=== PATIENT | male | born 1965 | race Caucasian/White ===

== ENCOUNTER → 2020-12-31 13:03 | Outpatient (BNVA) | payer OTHER, SELFPAY | PROVIDERS: PCP Internal Medicine; Visit Provider Urology ==

== ENCOUNTER → 2021-07-01 13:19 | Outpatient (BNVA) | payer OTHER, SELFPAY | PROVIDERS: PCP Internal Medicine; Visit Provider Urology ==

== ENCOUNTER → 2022-01-05 14:18 | Outpatient (BNVA) | payer OTHER, SELFPAY | PROVIDERS: PCP Internal Medicine; Visit Provider Urology ==

== ENCOUNTER → 2022-04-06 08:46 | Outpatient (BNVA) | payer OTHER, SELFPAY | PROVIDERS: PCP Internal Medicine; Visit Provider Urology | DX: Z13.89 Encounter for screening for other disorder (principal) ==

== ENCOUNTER 2022-04-18 07:07 | Day surgery (SDC) | payer OTHER, SELFPAY ==
--- NOTE | 2022-04-15 10:41 | HO.ANESPROP2 ---
Documented by User: Shania Lewis NP 04/15/22 10:50 HPI - Anesthesia Eval Consult details Narrative: 57yo M for Laser Ablation Prostate w/Green Light PMFSH Active Problems Active Problems: All Active Problems (Updated 02/04/22 @ 14:24 by Sandro Callahan MD) Nocturia more than twice per night (Acute) Weak urinary stream (Acute) Bladder outlet obstruction (Acute) Chronic prostatitis (Acute) BPH (benign prostatic hyperplasia) (Acute) Elevated PSA (Acute) Past Medical History Medical History (Updated 04/15/22 @ 10:41 by Shania Lewis NP) Bladder outlet obstruction BPH (benign prostatic hyperplasia) Social History Social History Patient Tobacco Use Status: Never used Tobacco Meds Allergies Allergy/AdvReac Type Severity Reaction Status Date / Time amoxicillin [Augmentin] Allergy Unknown Unknown Verified 01/05/22 14:21 clavulanic acid [Augmentin] Allergy Unknown Unknown Verified 01/05/22 14:21 iodine Allergy Unknown during Verified 01/05/22 14:21 surgery the site diddnt heal properly Sulfa (Sulfonamide Allergy Unknown Unknown Verified 01/05/22 14:21 Antibiotics) Home Medications Medication Instructions Recorded Confirmed Last Taken Type atorvastatin 40 mg tablet 40 mg PO BEDTIME 07/01/21 04/18/22 04/17/22 History Exam Exam Date and Time: April 15, 2022 1041 Assessment and Plan Assessment Anesthesia Assessment: Chart Reviewed Documented by User: Jagdeep Abbott MD 04/18/22 16:01 HPI - Anesthesia Eval Consult details Narrative: 57yo M for Laser Ablation Prostate w/Green Light LENIN , CPAP PMFSH Past Medical History Medical History (Updated 04/15/22 @ 10:41 by Shania Lewis NP) Bladder outlet obstruction BPH (benign prostatic hyperplasia) Family History Family history of problems with anesthesia: No Surgical History History of Problems with Anesthesia: No Social History Social History Patient Tobacco Use Status: Never used Tobacco Meds Allergies Allergy/AdvReac Type Severity Reaction Status Date / Time amoxicillin [Augmentin] Allergy Unknown Unknown Verified 01/05/22 14:21 clavulanic acid [Augmentin] Allergy Unknown Unknown Verified 01/05/22 14:21 iodine Allergy Unknown during Verified 01/05/22 14:21 surgery the site diddnt heal properly Sulfa (Sulfonamide Allergy Unknown Unknown Verified 01/05/22 14:21 Antibiotics) Home Medications Medication Instructions Recorded Confirmed Last Taken Type atorvastatin 40 mg tablet 40 mg PO BEDTIME 07/01/21 04/18/22 04/17/22 History Exam Airway Mallampati Class: III TM Dist: >3cm Neck ROM: Limited Loose/Missing/Broken Teeth: Yes Heart: S1,S2 Lungs: b/l breath sounds Assessment and Plan Assessment Anesthesia Assessment: Anesthesia Plan Discussed Final Anesthetic Review Family History of Problems with Anesthesia: No History of Problems with Anesthesia: No NPO: Yes ASA Class: II Final Preanesthetic Review: Meds/Allgs Chart Reviewed, Consent Obtained/Reviewed and Anes Risks/Benef Reviewed Patient Risk: Intermediate Procedure Risk: Intermediate Anesthetic Plan Anesthetic Plan: GA Disposition: Standard PACU
[2022-04-18 07:43] VITALS: BP 132/81; PULSE 79; RESP 17; TEMP 36.8; O2SAT 98; BMI 27.2
[2022-04-18] MEDS: Lactated Ringers 1,000 ML 100 ML IVCONT (08:02)
--- NOTE | 2022-04-18 08:54 | P.HPSUR_ITS ---
Pre-Procedural Eval Section A Date of Service: 04/18/22 The patient is an INPATIENT: No Changes since office visit: No Cold of Flu in the past 2 weeks, No New Medical Problems, No Changes in Medication and No Patient answered all questions The History & Physical has been completed within 30 days and I have reviewed it.: Yes Section B Chief Complaint: Benign prostatic hyperplasia without lower urinary Details of Present Illness: Greenlight laser prostatectomy Relevant Family History (Specify if Yes): No Relevant Social History: None Present Medications: see Short Stay Collaborative assessment Medical History: No relevant PMH History of Previous Operations: No relevant previous surgery Allergies: Allergies Allergy/AdvReac Type Severity Reaction Status Date / Time amoxicillin [Augmentin] Allergy Unknown Unknown Verified 01/05/22 14:21 clavulanic acid [Augmentin] Allergy Unknown Unknown Verified 01/05/22 14:21 iodine Allergy Unknown during Verified 01/05/22 14:21 surgery the site diddnt heal properly Sulfa (Sulfonamide Allergy Unknown Unknown Verified 01/05/22 14:21 Antibiotics) Review of Systems Sugical H&P ROS: Negative: Constitution, Cardiovascular, Respiratory, Neurological, Psychiatric, Hem-Onc, Allergic/Immunologic, Gastrointestinal, Genitourinary, Musculoskeletal, Integumentary, Endocrine and Eyes/E ars/Nose/Throat Exam Surgical H&P Exam: Normal: HEENT, Normal: Heart, Normal: Lungs, Normal: Extremities, Normal: Abdomen, Normal: Skin and Normal: Neurological Plan Diagnosis/Plan: Unchanged (laser prostate) I have reviewed the history and physical and performed a pertinent physical examination on my patient. No changes have occurred unless specified.
--- NOTE | 2022-04-18 10:22 | W.PM.OPN ---
Operative Note Operative Note Date of Service: 04/18/22 Narrative: PreOperative Diagnosis: Bladder outlet obstruction Post Operative Diagnosis: Bladder outlet obstruction Procedure: GreenLight Laser Enucleation of the prostate Surgeon: Dr Sandro Callahan Anesthesia: General Indications for procedure: weakening of stream despite medications History of bladder outlet obstruction. Treated with alpha-harry and other medications. Still with symptoms. On cystoscopy in office has trilobar prostate. Recommendation for prostate procedure with laser enucleation of prostate. It has been discussed. Focus was placed on development of retrograde examination which is a normal part of this procedure. Procedure: After informed consent was verified the patient was brought to the operating room and placed in a supine position. Anesthesia was administered per protocol. Patient was placed in modified dorsal lithotomy position and prepped and draped in a sterile fashion. Safety pause time-out was confirmed. Antibiotics have been given. Twenty-four Tajik laser cystoscope was inserted per urethra. No abnormalities found the anterior posterior urethra. The bladder was filled on both ureteric orifices were seen in normal position away from our area of interest. Using a GreenLight laser settings of 80 w incisions were made at the 5 and 7 o'clock position. They were taken down and then laterally on each side. They were brought from the bladder neck down to the level of the veru. These defined the lateral aspects of the median lobe area. The median lobe was ablated and enucleated tissue removed. The prostate median lobe is bilobar and was taken down carefully in 2 steps. Power was increased from 80 to 140 throughout the procedure. once the large median lobe been taking care of there was a wide-open channel. Decision was made not to proceed with the by lateral lateral lobes as primary component of obstruction had been clearly removed. When this was completed debris and pieces of prostate removed from the bladder. Both ureteric orifices were reviewed again in shown to be patent in away from any areas of energy damage. The apical area was reviewed in any stray ooze was controlled. A 22 Tajik 30 cc balloon Martinez catheter was placed over stylet into the bladder. Clear efflux was obtained. 30 cc was placed in the balloon and gentle traction was placed. A snap was used to hold tension once the patient will be moved and transported. Once transportation its finish this novel be removed. A belladonna and opiate suppository was placed for postprocedure pain management. He tolerated procedure well was extubated in the operating and transferred in a stable condition to the recovery area. Total Power 255 kW, 30 min lasing time Pathology: Prostate tissue Drains: Martinez catheter
[2022-04-18 10:28] VITALS: BP 107/58; PULSE 61; RESP 18; TEMP 36.3; O2SAT 97
[2022-04-18 10:33] VITALS: BP 101/60; PULSE 62; RESP 18; O2SAT 97
[2022-04-18 10:38] VITALS: BP 108/65; PULSE 61; RESP 18; O2SAT 97
[2022-04-18 10:43] VITALS: BP 117/70; PULSE 68; RESP 18; O2SAT 95
[2022-04-18] MEDS: traMADoL HCL 50 MG TABLET PO (10:54)
[2022-04-18 10:58] VITALS: BP 113/77; PULSE 60; RESP 18; TEMP 36.4; O2SAT 96
== END 2022-04-18 11:53 | disposition home or self-care (01) ==
PROVIDERS: PCP Internal Medicine; Visit Provider Urology
PROC: (CPT 52648; principal; 2022-04-18 09:10)
DX: N40.1 Benign prostatic hyperplasia with lower urinary tract symptoms (principal); N32.0 Bladder-neck obstruction; R39.12 Poor urinary stream; R35.1 Nocturia; R97.20 Elevated prostate specific antigen [PSA]; N41.1 Chronic prostatitis; Z88.1 Allergy status to other antibiotic agents; Z91.041 Radiographic dye allergy status
CPT/HCPCS: 52648; 88305; 88342; 88344; J1956; J2250; J3010

== ENCOUNTER → 2022-04-21 09:24 | Outpatient (BNVA) | payer OTHER, SELFPAY | PROVIDERS: PCP Internal Medicine; Visit Provider Urology | DX: N40.0 Benign prostatic hyperplasia without lower urinary tract symptoms (principal) | CPT/HCPCS: 51700; 51798 ==

== ENCOUNTER → 2022-06-07 09:21 | Outpatient (BNVA) | payer OTHER, SELFPAY | PROVIDERS: PCP Internal Medicine; Visit Provider Urology | DX: N32.0 Bladder-neck obstruction (principal); N40.0 Benign prostatic hyperplasia without lower urinary tract symptoms; R35.1 Nocturia | CPT/HCPCS: 51798 ==

== ENCOUNTER → 2022-12-08 09:03 | Outpatient (BNVA) | payer OTHER, SELFPAY | PROVIDERS: PCP Internal Medicine; Visit Provider Urology | DX: Z13.89 Encounter for screening for other disorder (principal) ==

== ENCOUNTER 2023-06-21 13:25 | Outpatient (AMB) | payer OTHER, SELFPAY ==
--- NOTE | 2023-06-21 12:07 | A.OFFVIS_ITS ---
Intake Intake Visit Reasons: 6M PSA(set) Intake Note: Patient presents today for a follow-up on PSA Results: Labs completed 05/31/2023. Patient stated taking Finasteride 3x a wk per Dr Callahan: Meds- Finasteride, Nitro & Tamsulosin Allergies to Antibiotic- Amoxicillin & Sulfa Blood Thinner- None Customs Director Required: No Accompanied by: Self / Same As Patient Allergies amoxicillin [Augmentin] Allergy (Unknown, Verified 06/21/23 13:26) Unknown clavulanic acid [Augmentin] Allergy (Unknown, Verified 06/21/23 13:26) Unknown iodine Allergy (Unknown, Verified 06/21/23 13:26) during surgery the site diddnt heal properly Sulfa (Sulfonamide Antibiotics) Allergy (Unknown, Verified 06/21/23 13:26) Unknown HPI HPI Comments History of Present Illness Details Yaon is a 58-year-old male who presents today via tele-health for a follow up on PSA results. 06/21/2023-- He saw Dr. Callahan on 12/08/2022 for elevated PSA and lower urinary tract symptoms and h/o prostatitis. He has had labs done on 05/31/2023. Patient stated taking Finasteride thrice a week per Dr Callahan: I reviewed the PSA results from 05/30/2023 revealed 3.1. In review of Dr. Callahan's notes did have prostate biopsies that were benign. Plan: Continue finasteride on Monday, Monday, and Monday. Continue to monitor PSA. Will recheck in one year with Dr. Callahan. [facility] Medical History Bladder outlet obstruction BPH (benign prostatic hyperplasia) Surgical History No pertinent past surgical history Family History Father No problems noted. Mother No problems noted. Social History Alcohol intake: current Alcohol intake frequency: holidays/special occasions only Patient Tobacco Use Status: Never used Tobacco Review of Systems Const All systems reviewed & are unremarkable except as noted in HPI and below Reports no additional complaints Eyes Reports no additional complaints ENT Reports no additional complaints Card Denies dyspnea Resp Denies cough and Denies dyspnea GI Reports no additional complaints Musc Reports no additional complaints Skin/Breast Denies rash and Denies unusual bruising Neuro Reports no additional complaints Psych Reports no additional complaints Endo Reports no additional complaints Adriel/Lymph Reports no additional complaints Aller/Immun Reports no additional complaints Assessment & Plan Assessment & Plan (1) Elevated PSA: Code(s): R97.20 - Elevated prostate specific antigen [PSA] (2) BPH (benign prostatic hyperplasia): Code(s): N40.0 - Benign prostatic hyperplasia without lower urinary tract symptoms (3) Bladder outlet obstruction: Code(s): N32.0 - Bladder-neck obstruction (4) Chronic prostatitis: Code(s): N41.1 - Chronic prostatitis Plan Continue finasteride on Monday, Monday, and Monday. Continue to monitor PSA. Will recheck in one year. Orders: Orders PSA,Total (Free>4and<10) 11 Months R97.20 - Elevated prostate specific antigen [PSA] Patient Instructions: The patient had an opportunity to ask questions regarding treatment plan. All questions were answered. Imaging, Laboratory studies and physical exam results were discussed and reviewed in detail. No major barriers to understanding were identified. The patient expressed understanding and agreement with the above treatment plan.? ? ? The patient is aware they should contact our office by phone for worsening of their current condition or the appearance of new symptoms. Compliance is encouraged with any medications and followup testing that is ordered.? ? ? It is a privilege to be allowed the opportunity to participate in the urologic care of your patient. If you have any questions or concerns regarding treatment for the above conditions please do not hesitate to contact me. The office telephone contact is [phone].? ? ? This note is constructed in part using voice recognition software. While every effort has been made to ensure accuracy plumbing installer errors may have been in cluded.? ? ? Yours sincerely,? ? ? Karan Gibbons MD? ? Coding Level of Care Code Tele New Pt Level 3 (18918) Diagnoses Elevated PSA R97.20 BPH (benign prostatic hyperplasia) N40.0 Bladder outlet obstruction N32.0 Chronic prostatitis N41.1
== END 2023-06-21 14:18 | disposition home or self-care (01) ==
LOC: HO.HUSH 13:25
PROVIDERS: PCP Internal Medicine; Visit Provider Urology
DX: R97.20 Elevated prostate specific antigen [PSA] (principal); N40.0 Benign prostatic hyperplasia without lower urinary tract symptoms; N32.0 Bladder-neck obstruction; N41.1 Chronic prostatitis
CPT/HCPCS: 99203

== ENCOUNTER → 2023-06-21 13:25 | Outpatient (BNVA) | payer OTHER, SELFPAY | PROVIDERS: PCP Internal Medicine; Visit Provider Urology ==

== ENCOUNTER 2024-06-26 13:00 | Outpatient (AMB) | payer OTHER, SELFPAY ==
--- NOTE | 2024-06-26 13:48 | A.OFFVIS_ITS ---
Intake Visit Reasons: 1Y Follow up- PSA/PVR(set) Intake Note: Patient is Present for PSA Urology Med: Tamsulosin, Finasteride Antibiotic Allergy: Amoxicillin,Sulfa Blood Thinner: None Last PVR: 32 Specimen Technician Required: No Accompanied by: Self / Same As Patient Allergies amoxicillin [Augmentin] Allergy (Unknown, Verified 06/26/24 13:50) Unknown clavulanic acid [Augmentin] Allergy (Unknown, Verified 06/26/24 13:50) Unknown iodine Allergy (Unknown, Verified 06/26/24 13:50) during surgery the site diddnt heal properly Sulfa (Sulfonamide Antibiotics) Allergy (Unknown, Verified 06/26/24 13:50) Unknown HPI Comments Details: Alvaro LAM is a very pleasant male. They are a patient of Dr Collier. They are seen in the office today for the following urologic conditions. - elevated PSA - lower urinary tract symptoms Finasteride every other day 2.3 12 month follow-up Continues to have good benefit from GreenLight laser. Very happy he had the procedure. Works for [employer] Lower urinary tract symptoms Prostate procedure 04/27 - GreenLight Current therapy finasteride every other day Elevated PSA/Abnormal SHELL: Discussed results He presents for further evaluation of elevated PSA - Fusion biopsy results. One area of atypical focal point. Has been derick gore at [facility]. Would recommend continued followup. Current management is combination therapy with finasteride Laboratory investigations include a total PSA evaluation 12/23 - 7, 03/23 12, 03/24 9.1 23%, 03/25 37 - prostatitis flare 05/25 11.5, 12/27 10.4, 06/26 6.9, 12/28 8.2 (13%), 12/29 2.8, 06/29 2.3 Imaging investigations include a prostate MRI Yes 08/22 MRI [facility] Volume 90 cc - 03/25 MRI [facility] 90cc Individualized Prostate Cancer Risk Calculator 5-10% high risk. A TRUS biopsy - has been performed and is negative 2014, targeted 2016 Therapeutic plan - continue surveillance [facility] Medical History Bladder outlet obstruction BPH (benign prostatic hyperplasia) Surgical History No pertinent past surgical history Family History Father No problems noted. Mother No problems noted. Social History Alcohol intake: current Alcohol intake frequency: holidays/special occasions only Patient Tobacco Use Status: Never used Tobacco Review of Systems Const Denies chills and Denies fever(s) Card Reports no additional complaints and Denies syncope Resp Denies cough GI Denies abdominal pain and Denies heartburn Reports as per HPI and Denies change in libido Neuro Denies syncope Psych Denies change in libido Endo Denies change in libido Physical Exam Const General: cooperative, healthy appearing, comfortable and no acute distress Orientation/consciousness: patient oriented x3 HEENT Face and sinus: Yes normal facial exam Mouth: moist mucous membranes Neck Neck: Yes normal visual inspection, Yes full ROM and Yes trachea midline Chest Chest palpation & inspection: normal inspection of the chest Resp Effort & Inspection: normal respiratory effort, able to speak in complete sentences and no respiratory distress GI Inspection: Yes normal to inspection Back/Spine/Pelvis Cervical Spine: normal cervical lordosis Thoracic/Lumbar Spine: thoracic and lumbar spine normal to inspection Skin General skin exam: no rashes or lesions noted Neuro General: patient oriented x3, gait normal, tone normal and moves all extremities Extrem General: Yes normal to inspection and Yes capillary refill normal Assessment & Plan Assessment & Plan (1) BPH (benign prostatic hyperplasia): Code(s): N40.0 - Benign prostatic hyperplasia without lower urinary tract symptoms Category: Medical (2) Nocturia more than twice per night: Code(s): R35.1 - Nocturia Category: Medical (3) Bladder outlet obstruction: Code(s): N32.0 - Bladder-neck obstruction Category: Medical Plan Twelve month follow-up PSA Orders: Orders PSA,Total (Free>4and<10) 06/13/24 R97.20 - Elevated prostate specific antigen [PSA] AMB Post Void Residual by ultrasound Today N40.0 - Benign prostatic hyperplasia without lower urinary tract symptoms Prostate Specific Antigen 364 Days R97.20 - Elevated prostate specific antigen [PSA] Patient Instructions: Imaging studies, laboratory and physical exam results were discussed and reviewed in detail. No major barriers to patient understanding were identified. An opportunity to ask questions regarding the treatment plan was provided. All questions were answered. The patient expressed understanding and agreement with the above treatment plan. The patient is aware they should contact our office by phone for worsening of their current condition or the appearance of new urologic symptoms. Compliance is encouraged with any medications and followup testing that is ordered. It is a privilege to participate in the urologic care of your patient. If you have any questions or concerns regarding treatment for the above conditions, or other urologic issues, please do not hesitate to contact me. The office telephone contact is [phone]. This note is constructed using voice recognition software. While every effort has been made to ensure accuracy denier control operator errors may have been included. Yours sincerely, Dr Sandro Callahan MD, [facility] - Urology Providers of Expert, Compassionate Care for the Genitourinary System Coding Level of Care Code Est Pt Level 4 (34451) Diagnoses BPH (benign prostatic hyperplasia) N40.0 Nocturia more than twice per night R35.1 Bladder outlet obstruction N32.0
== END 2024-06-26 14:53 | disposition home or self-care (01) ==
PROVIDERS: PCP Internal Medicine; Visit Provider Urology
DX: N40.0 Benign prostatic hyperplasia without lower urinary tract symptoms (principal); R35.1 Nocturia; N32.0 Bladder-neck obstruction
CPT/HCPCS: 99214

== ENCOUNTER → 2024-06-26 13:00 | Outpatient (BNVA) | payer OTHER, SELFPAY | PROVIDERS: PCP Internal Medicine; Visit Provider Urology ==

== ENCOUNTER 2025-03-07 09:06 | Day surgery (SDC) | payer OTHER, SELFPAY ==
--- OUTSIDE RECORDS SUMMARY | 2025-02-12 10:48 | XMS_ITS | Patient Health Record ---
Author Organization [facility] Address [address] [place] [address] Care Team Providers Care Aircraft Ordnance Technician Name Role Phone Con Collier Primary Care Provider Unavailab Inder Ballard [phone] Allergies Allergen (clinical drug ingredient) Drug/Non Drug Allergy documented on EMR Reaction Allergy Type Onset Date Status Iodine Unknown Drug Allergy Active bee stings (uncoded) Unknown Allergy Active Reason For Referral No Information Medications Medication SIG (Take, Route, Frequency, Duration) Notes Start Date End Date Status Finasteride 5 MG TAKE 1 TABLET BY EARL TH 3 TIMES WEEKLY TAKEN ON Wednesdays AND MONDAY Oral Active Atorvastatin Calcium 40 MG TAKE 1 TABLET BY MOUTH EVERY DAY Oral for 30 Active Problems Problem Type SNOMED Code ICD Code Onset Dates Problem Status W/U Status Risk Notes Problem Colon cancer screening (410639155) Colon cancer screening (Z12.11) Active confirmed Problem Pre-procedure evaluation check (310730525) Encounter for other preprocedural examination (Z01.818) Active confirmed Vital Signs Blood pressure diastolic 00 mm Hg 11/21/2024 Height 70 in 11/21/2024 Blood pressure systolic 00 mm Hg 11/21/2024 Weight 204 lbs 11/21/2024 BMI 29.27 kg/m2 11/21/2024 Encounters Encounter Location Date Provider Diagnosis [facility] [address] [place] [id number] 11/21/2024 Inder Cantrell Colon cancer screeni ng Z12.11 and Encounter for other preprocedural examination Z01.818 Assessments Encounter Date Diagnosis (ICD Code) Assessment Notes Treatment Notes Treatment Clinical Notes Section Notes 11/21/2024 Colon cancer screening (ICD-10 - Z12.11) Overall, Alvaro appears quite well. Given his age, good clinical appearance, and his last colonoscopy being over 10 years ago, I did recommend a followup screening colonoscopy for him. We did review the rationale for that in regard to colon cancer prevention. Full consent was obtained for this, including risks of bleeding and perforation. The procedure will be done with monitored anesthesia care. Alvaro was comfortable with this plan. Thank you again for allowing me to participate in Alvaro's care. I shall continue to keep you advised of his progress. 11/21/2024 Encounter for other preprocedural examination (ICD-10 - Z01.818) Overall, Alvaro appears quite well. Given his age, good clinical appearance, and his last colonoscopy being over 10 years ago, I did recommend a followup screening colonoscopy for him. We did review the rationale for that in regard to colon cancer prevention. Full consent was obtained for this, including risks of bleeding and perforation. The procedure will be done with monitored anesthesia care. Alvaro was comfortable with this plan. Thank you again for allowing me to participate in Alvaro's care. I shall continue to keep you advised of his progress. Plan Of Treatment Future Test Test Name Order Date COLONOSCOPY 09/12/2014 COLONOSCOPY 11/21/2024 Next Appt Details Provider Name:Inder Cantrell , 03/07/2025 10:30:00 AM, [address] [place] [address], [id number], Insurance Providers Payer Name Payer Address Payer Phone Subscriber Number Group Number Insured Name Patient Relationship to Insured Coverage Start Date Coverage End Date [facility] [address] [address] [place] [address] [id number] CAROLE CORA Self - patient is the insured Medical (General) History Medical History History ICD Code Denies PR,DM,CVA,Lung disease,renal dise ase Hyperlipidemia BPH Negative screening colonoscopy in [facility] of 2013 Surgical History Surgery Date(Month/Year) Appendectomy Tonsillectomy Laser prostate surgery
--- OUTSIDE RECORDS SUMMARY | 2025-02-12 10:49 | XMS_ITS ---
Author Organization [facility] Address [address] [place] [phone] Care Team Providers Care Board Certified Behavioral Analyst Name Role Phone Con Collier Primary Care Provider Inder Gray [phone] Allergies Allergen (clinical drug ingredient) Drug/Non Drug Allergy documented on EMR Reaction Allergy Type Onset Date Status Iodine Unknown Drug Allergy Active bee stings (uncoded) Unknown Allergy Active REASON FOR VISIT PATIENT PRESENTS TODAY FOR SCREENING COLON Medications Medication SIG (Take, Route, Frequency, Duration) [...] Status Risk Notes Problem Colon cancer screening (204296886) Colon cancer screening (Z12.11) Active confirmed Problem Pre-procedure evaluation check (414745518) Encounter for other preprocedural examination (Z01.818) Active confirmed Vital Signs Blood pressure systolic 00 mm Hg 11/21/19 25 Blood pressure diastolic 00 mm Hg 025 Height 70 in 11/21/2024 Weight 204 lbs 11/21/2024 BMI 29.27 kg/m2 11/21/2024 Encounters Encounter Location Date Provider Diagnosis [facility] [address] [place] [id number] 11/21/2024 Inder Cantrell Colon cancer screeni ng [...] Future Test Test Name Order Date COLONOSCOPY 11/21/2024 Next Appt Details Follow Up: prn, Reason: Provider Name:Inder Cantrell , 03/07/2025 10:30:00 AM, [address] [place] [address], [phone], Progress Notes * CORA LAMDOB: 4 (59 yo M)Acc No.[id number]:11/21/2024 Progress Notes Patient:?CORA LAM Provider:?Inder Cantrell MD :1965???Age:59 Y???Sex:Male Zack e:11/21/2024 Address:[address] [place], [place] [id number] Pcp:Con Collier Subjective: * Chief Complaints: * ???PATIENT PRESENTS TODAY FO R SCREENING COLON * HPI: ???incontinence:? I saw Alvaro in the office today for evaluation of colorectal cancer screening. ?I last saw Alvaro in October 2014, at which time he underwent a negative screening colonoscopy. He presently feels very well. He enjoys a good appetite, without any significant heartburn or dysphagia. His bowel movements have been regular and without any signs of bleeding. He denies abdominal pain, signs of jaundice, nor unintentional weight loss. He denies any known family history of colon cancer. He does report that his son has been diagnosed with eosinophilic esophagitis in his 30s. * ROS:?General/Constitutional:?Change in appetite?denies.?Chills?denies.?Fatigue?denies.?Ophthalmologic:?Comments?all negative.?ENT:?Comments?all negative.?Respiratory:?hemoptysis?denies.?Cough?denies.?Cardiovascular:?Chest pain?denies.?Orthopnea?denies.?Gastrointestinal:?Comments?See HPI for details.?Genitourinary:?Hematuria?denies.?Dysuria?denies.?Musculoskeletal:?Painful joints?denies.?Weakness?denies.?Skin:?Itching?denies.?Rash?denies.?Neurologic:?Headache?denies.?Seizures?denies.?Psychiatric:?Comments?all negative.? * Medical History:? * Surgical History:?Appendecto my Tonsillectomy Laser prostate surgery * Hospitalization/Major Diagno stic Procedure:?No Hospitalization History. * Family History:?Father: praveen kim?Mother: .?Maternal Grand Father: , diagnosed with Colon polyps.? No 1st degree relatives with colorectal cancer Son has EoE. * Social History:?Tobacco Use:?Tobacco Use/Smoking?Are you a: nonsmoker.?Drugs/Alcohol:?Alcohol Screen?Points: 3, Interpretation: Negative.?Miscellaneous:?Marital status: . 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 ???Nonsmoker; occasional alcohol. * Medications:?TakingAtorvasta tin Calcium 40 MG Tablet TAKE 1 TABLET BY MOUTH EVERY DAY Oral Finasteride 5 MG Tablet TAKE 1 TABLET BY MOUTH 3 TIMES WEEKLY TAKEN ON Wednesdays AND MONDAY Oral Taking Atorvastatin Calcium 40 MG Tablet TAKE 1 TABLET BY MOUTH EVERY DAY Oral Taking Finasteride 5 MG Tablet TAKE 1 TABLET BY MOUTH 3 TIMES WEEKLY TAKEN ON Wednesdays AND MONDAY Oral DiscontinuedGemfibrozil Flomax Multi Vitamin/Minerals Tablet Orally Fish Oil Aspir-81 81 MG Tablet Delayed Release 1 tablet Orally Once a dayLysine MoviPrep 100 GM Solution as directed Orally as directedMedication List reviewed and reconciled with the patientDiscontinued Gemfibrozil Discontinued Flomax Discontinued Multi Vitamin/Minerals Tablet Orally Discontinued Fish Oil Discontinued Aspir-81 81 MG Tablet Delayed Release 1 tablet Orally Once a dayDiscontinued Lysine Discontinued MoviPrep 100 GM Solution as directed Orally as directedMedication List reviewed and reconciled with the patient * Allergies:?Rebeca anderson[Allergies Verified] Objective: * Vitals:?Wt: 204 lbs, Ht: 70 in, BMI:29.27 Index, BP: 00/00 mm Hg. * Examination: ???General Examination: ?GENERAL APPEARANCE:?pleasant, well nourished, well developed, in no acute distress.?EYES:?sclera non-icteric.?ORAL CAVITY:?mucosa moist.?NECK/THYROID:?no cervical lymphadenopathy, neck supple.?SKIN:?nonjaundiced, no spider angiomata.?HEART:?S1, S2 normal.?LUNGS:?clear to auscultation bilaterally.?ABDOMEN:?normal bowel sounds, no guarding or rigidity, no guarding or rigidity, no masses palpable, soft, nontender, nondistended.?EXTREMITIES:?no edema.?NEUROLOGIC:?alert and oriented.? Assessment: * Assessment: 1.?Encounter for other prepr ocedural examination - Z01.818 (Primary)?2.?Colon cancer screening - Z12.11? Overall, Alvaro appears quite well. Given his [...] to keep you advised of his progress. Plan: * Treatment: * Procedure Codes:?3017F COLOR ECTAL CA SCREEN DOC [id number] TOBACCO NON-[id number] BP SCR NOT PRFRM REC REASON NOS * Preventive Medicine:? ??Counseling:?Care goal follow-up plan:?Above Normal BMI Follow-up?Giving encouragement to exercise,?BMI management provided?Yes.? * Follow Up:?prn * * Sign off status: Completed true * Provider:?Inder Cantrell MD Date:? 025 Generated for Eleni lazaro/Yady/Gibran on:?02/12/2025 10:48 AM EDT History and Physical Notes * HPI (History of Present Illness) Category Sub-Category Detail Notes Category Not es incontinence I saw Alvaro in the office today for evaluation of colorectal cancer screening. I last saw Alvaro in October 2014, at which time he underwent a negative screening colonoscopy. He presently feels very well. He enjoys a good appetite, without any significant heartburn or dysphagia. His bowel movements have been regular and without any signs of bleeding. He denies abdominal pain, signs of jaundice, nor unintentional weight loss. He denies any known family history of colon cancer. He does report that his son has been diagnosed with eosinophilic esophagitis in his 30s. Examination Category Sub-Category Detail Notes Category Not es General Examination GENERAL APPEARANCE: pleasant , well nourished, well developed, in no acute distress HEAD: EYES: sclera non-icteric EARS: NOSE: THROAT: NECK/THYROID: no cervical lymphade nopathy, neck supple HEART: S1, S2 normal CHEST: LUNGS: clear to auscultatio n bilaterally ABDOMEN: normal bowel sounds, no guarding or rigidity, no guarding or rigidity, no masses palpable, soft, nontender, nondistended NEUROLOGIC: alert and oriented SKIN: nonjaundiced, no spi jefry angiomata EXTREMITIES: no edema PERIPHERAL PULSES: BACK: BREASTS: MUSCULOSKELETAL: MALE GENITOURINARY: LYMPH NODES: RECTAL EXAM: FEMALE GENITOURINARY: ORAL CAVITY: mucosa moist
--- NOTE | 2025-03-05 10:46 | HO.ANESPROP2 ---
Documented by User: Shania Lewis NP 03/05/25 10:46 HPI - Anesthesia Eval Consult details Narrative: 60yo M for Colonoscopy PMFSH Active Problems Active Problems: All Active Problems Bladder outlet obstruction (Acute) BPH (benign prostatic hyperplasia) (Acute) Nocturia more than twice per night (Acute) Weak urinary stream (Acute) Chronic prostatitis (Acute) Elevated PSA (Acute) Past Medical History Medical History Hyperlipidemia Bladder outlet obstruction BPH (benign prostatic hyperplasia) Family History Family History Father No problems noted. Mother No problems noted. Family history of problems with anesthesia: No Surgical History Surgical History History of prostate surgery Hx of tonsillectomy Hx of appendectomy H/O colonoscopy No pertinent past surgical history History of Problems with Anesthesia: No Social History Social History Alcohol intake: current Alcohol intake frequency: holidays/special occasions only Patient Tobacco Use Status: Never used Tobacco Use of substances other than those prescribed or required for medical reasons: No Are you DNR?: No Advance Directives: No Advance Directives Information Provided: Yes Meds Allergies Allergy/AdvReac Type Severity Reaction Status Date / Time amoxicillin [Augmentin] Allergy Unknown Unknown Verified 03/07/25 09:15 clavulanic acid [Augmentin] Allergy Unknown Unknown Verified 03/07/25 09:15 iodine Allergy Unknown during Verified 03/07/25 09:15 surgery the site diddnt heal properly Sulfa (Sulfonamide Allergy Unknown Unknown Verified 03/07/25 09:15 Antibiotics) bee pollen [bee stings] Allergy Unknown Verified 03/07/25 09:15 Home Medications ?Medication ?Instructions ?Recorded ?Confirmed ?Last Taken ?Type atorvastatin 40 mg tablet 40 mg PO BEDTIME 07/01/21 03/05/25 04/17/22 History Assessment and Plan Assessment Anesthesia Assessment: Chart Reviewed Final Anesthetic Review Family History of Problems with Anesthesia: No History of Problems with Anesthesia: No Documented by User: Olivia Marina MD 03/07/25 09:35 PMF Past Medical History Medical History Hyperlipidemia Bladder outlet obstruction BPH (benign prostatic hyperplasia) Family History Family History Father No problems noted. Mother No problems noted. Surgical History Surgical History History of prostate surgery Hx of tonsillectomy Hx of appendectomy H/O colonoscopy No pertinent past surgical history Social History Social History Alcohol intake: current Alcohol intake frequency: holidays/special occasions only Patient Tobacco Use Status: Never used Tobacco Use of substances other than those prescribed or required for medical reasons: No Are you DNR?: No Advance Directives: No Advance Directives Information Provided: Yes Meds Allergies Allergy/AdvReac Type Severity Reaction Status Date / Time amoxicillin [Augmentin] Allergy Unknown Unknown Verified 03/07/25 09:15 clavulanic acid [Augmentin] Allergy Unknown Unknown Verified 03/07/25 09:15 iodine Allergy Unknown during Verified 03/07/25 09:15 surgery the site diddnt heal properly Sulfa (Sulfonamide Allergy Unknown Unknown Verified 03/07/25 09:15 Antibiotics) bee pollen [bee stings] Allergy Unknown Verified 03/07/25 09:15 Home Medications ?Medication ?Instructions ?Recorded ?Confirmed ?Last Taken ?Type atorvastatin 40 mg tablet 40 mg PO BEDTIME 07/01/21 03/05/25 04/17/22 History Exam Airway Mallampati Class: II TM Dist: >3cm Neck ROM: Full Heart: rrr Lungs: cta Assessment and Plan Assessment Anesthesia Assessment: Anesthesia Plan Discussed Final Anesthetic Review NPO: Yes ASA Class: II Final Preanesthetic Review: No Changes in Pt Med Stat, Meds/Allgs Chart Reviewed and Consent Obtained/Reviewed Patient Risk: Low Procedure Risk: Low Anesthetic Plan Anesthetic Plan: MAC: Disposition: Standard PACU
[2025-03-05 11:30] VITALS: BMI 29.3
[2025-03-07 09:21] VITALS: BMI 30.1
[2025-03-07 09:23] VITALS: BP 148/86; PULSE 69; RESP 15; TEMP 36.4; O2SAT 96
[2025-03-07] MEDS: Lactated Ringers 1,000 ML 100 ML IVCONT (09:36)
[2025-03-07 11:27] VITALS: BP 116/45; PULSE 52; RESP 16; TEMP 36.1; O2SAT 96
--- NOTE | 2025-03-07 11:28 | P.BOP_ITS ---
Brief Operative Note Date of Service: 03/07/25 Pre-op diagnosis: Screening Post-op diagnosis: other (Colon polyps) Procedure: Colonoscopy to the cecum and TI with hot snare polypectomy of AC polyp, and bx/removal of polyps Surgeon: Inder Cantrell MD Anesthesia: MAC Was an Home Health Clinical Liaison used for this Procedure?: No Estimated blood loss (mL): 2.0 Pathology: other (A. Cecal polyps B. Ascending colon polyps C. Polyp at 60cm) Condition: stable Disposition: PACU
[2025-03-07 11:39] VITALS: BP 124/75; PULSE 51; RESP 16; TEMP 36.3; O2SAT 97
--- NOTE | 2025-03-07 12:41 | OP_ITS ---
DATE OF SERVICE: 03/07/2025 SURGEON: Inder Cantrell MD INDICATIONS: The patient presents for evaluation of colorectal cancer screening. Full consent has been obtained from him for this, including risks of bleeding and perforation. PREOPERATIVE DIAGNOSIS: Colorectal cancer screening. POSTOPERATIVE DIAGNOSIS: PROCEDURE PERFORMED: Colonoscopy to the cecum and terminal ileum with hot snare polypectomy, and biopsy and removal of polyps. ESTIMATED BLOOD LOSS: COMPLICATIONS: ANESTHESIA: Monitored anesthesia care. ASSISTANTS: SPECIMENS: POSTOPERATIVE DIAGNOSES: Colorectal cancer screening, colon polyps, mild diverticulosis, and internal hemorrhoids. DESCRIPTION OF PROCEDURE: The patient was placed in the left lateral decubitus position. The digital rectal exam revealed no abnormalities. The Olympus video pediatric colonoscope was entered into the rectum and advanced easily to the cecum. Once in the cecum, I did identify cecal pouch with appendiceal orifice and a normal-appearing ileocecal valve. The terminal ileum was cannulated and appeared normal. The scope was withdrawn back in the colon. The cecum was well visualized. In the cecum, there were 2 flat less than 5 mm polyps, both of which were biopsied and completely removed with cold biopsy forceps. The scope was slowly withdrawn assessing all mucosal surfaces carefully. Preparation was excellent. In the proximal ascending colon, there was an approximately 10 mm polyp, which was removed by hot snare polypectomy, recovered by suction. The polypectomy site appeared clean, without any sign of residual polyp nor bleeding. Also in the ascending colon, there was a 3 mm polyp, which was biopsied and completely removed with cold biopsy forceps and placed in the same container as the other larger polyp. At 60 cm, there was an approximately 3 mm polyp, which was biopsied and completely removed with cold biopsy forceps. I did not visualize any other polyps, colitis, nor angiodysplasia. There was a mild amount of sigmoid diverticulosis. In the rectum, scope was retroflexed visualizing internal hemorrhoids, but no other pathology. The rectal mucosa appeared normal. The scope was straightened and withdrawn from the patient. He tolerated the procedure well and was returned to the recovery area in stable condition. IMPRESSION: 1. Colon polyps. 2. Diverticulosis. 3. Internal hemorrhoids. PLAN: The results of the pathology will be checked. Assuming at least 1 of the polyps tubular adenoma, I would recommend a followup colonoscopy in 5 years. He was advised not to use any aspirin or NSAIDs for 1 week. This has been discussed with his . MD MARY JO Zhang/ALMAS / [id number]
== END 2025-03-07 12:15 | disposition home or self-care (01) ==
PROVIDERS: PCP Internal Medicine; Visit Provider Internal Medicine
PROC: 0DJD8ZZ Inspection of Lower Intestinal Tract, Via Natural or Artificial Opening Endoscopic (ICD-10-PCS; CPT 45378; principal; 2025-03-07 10:30)
DX: Z12.11 Encounter for screening for malignant neoplasm of colon (principal); D12.0 Benign neoplasm of cecum; D12.2 Benign neoplasm of ascending colon; D12.4 Benign neoplasm of descending colon; K57.30 Diverticulosis of large intestine without perforation or abscess without bleeding; K64.8 Other hemorrhoids; E78.5 Hyperlipidemia, unspecified; N40.0 Benign prostatic hyperplasia without lower urinary tract symptoms; Z79.899 Other long term (current) drug therapy; Z88.1 Allergy status to other antibiotic agents; Z88.2 Allergy status to sulfonamides; Z91.041 Radiographic dye allergy status; Z98.890 Other specified postprocedural states
CPT/HCPCS: 45385; 45380; 88305; J2003; J2704

== ENCOUNTER 2025-07-03 08:32 | Outpatient (AMB) | payer OTHER, SELFPAY ==
--- OUTSIDE RECORDS SUMMARY | 2025-03-07 05:30 | XMS_ITS ---
Author Organization [facility] Address [address] [place] [phone] Care Team Providers Care Gunner'S Mate M Name Role Phone Con Collier Primary Care Provider Inder Gray [phone] REASON FOR VISIT screening Encounters Encounter Location Date Provider Diagnosis [facility] Out[facility] [address] [place] [phone] 03/07/2025 Inder Cantrell Colon cancer scree robibn Z12.11 ; Colon polyps K63.5 ; Diverticulosis of large intestine without perforation or abscess without bleeding K57.30 and Other hemorrhoids K64.8 Assessments Encounter Date Diagnosis (ICD Code) Assessment Notes Treatment Notes Treatment Clinical Notes Section Notes 03/07/2025 Colon cancer screening (ICD-10 - Z12.11) 03/07/2025 Colon polyps (ICD-10 - K63.5) 03/07/2025 Diverticulosis of large intestine without perforation or abscess without bleeding (ICD-10 - K57.30) 03/07/2025 Other hemorrhoids (ICD-10 - K64.8) Plan Of Treatment No Information Progress Notes * CAROLE CORADOB: 4 (60 yo M)Acc No.[id number]:03/07/2025 COLON WITH MAC Patient: CORA HAMMOND Provider: Brooke Cantrell MD :1965 A ge:60 Y S ex:Male Date:03/07/2025 Address:[address] [place], [place] [id number] Pcp:Con Collier Subjective: * Chief Complaints: * 1 . Screening. * Medical History: Objective: * Vitals: Assessment: * Assessment: 1. C olon cancer screening - Z12.11 (Primary) 2 . C olon polyps - K63.5? 3. D iverticulosis of large intestine without perforation or abscess without bleeding - K57.30 4 . O ther hemorrhoids - K64.8 Plan: * Treatment: * Procedure Codes: 4 5385 LESION REMOVAL COLONOSCOPY, Modifiers: PT * * The named appointment provid er may or may not be the originator of this progress note, and it is not deemed complete until electronically signed by the appointment provider. Sign off status: Pending * Provider: Brooke Cantrell MD Date: 0 03/07/2025 Generated for Eleni lazaro/Yady/Maluitting on: 0 07/03/2025 09:10 AM EDT
--- NOTE | 2025-07-03 08:40 | A.OFFVIS_ITS ---
Intake Visit Reasons: 1y/PSA Intake Note: Patient is Present for 1 yr follow up Urology Med: Finasteride Antibiotic Allergy: Amoxicillin,Sulfa Blood Thinner: None PVR: 0 mls Labs done 06/23/25 : PSA 3.1 Middleware Systems Architect Required: No Accompanied by: Self / Same As Patient Allergies amoxicillin (Augmentin) Allergy (Unknown, Verified 07/03/25 08:41) Unknown clavulanic acid (Augmentin) Allergy (Unknown, Verified 07/03/25 08:41) Unknown iodine Allergy (Unknown, Verified 07/03/25 08:41) during surgery the site diddnt heal properly Sulfa (Sulfonamide Antibiotics) Allergy (Unknown, Verified 07/03/25 08:41) Unknown bee pollen (bee stings) Allergy (Verified 07/03/25 08:41) Unknown HPI Comments Details: Alvaro LAM is a very pleasant male. He is a patient of Dr Collier. He is seen in the office today for the following urologic conditions. - elevated PSA - lower urinary tract symptoms Slight rise to 3.1 on every other day finasteride Continues to have good benefit from [facility] laser. Very happy he had the procedure. Works for [employer] and [employer] - talked about new fastner for [employer] Lower urinary tract symptoms Prostate procedure 04/27 - [facility] Current therapy finasteride every other day Elevated PSA/Abnormal SHELL: Discussed results He presents for further evaluation of elevated PSA - Fusion biopsy results. One area of atypical focal point. Has been reviewed at [facility]. Would recommend continued followup. Current management is combination therapy with finasteride Laboratory investigations include a total PSA evaluation 12/23 - 7, 03/23 12, 03/24 9.1 23%, 03/25 37 - prostatitis flare 05/25 11.5, 12/27 10.4, 06/26 6.9, 12/28 8.2 (13%), 12/29 2.8, 06/29 2.3, 06/30 3.1 Imaging investigations include a prostate MRI Yes 08/22 [facility] Volume 90 cc - 03/25 MRI [facility] 90cc Individualized Prostate Cancer Risk Calculator 5-10% high risk. A TRUS biopsy - has been performed and is negative 2014, targeted 2016 Therapeutic plan - continue surveillance [facility] Medical History Hyperlipidemia Bladder outlet obstruction BPH (benign prostatic hyperplasia) Surgical History History of prostate surgery Hx of tonsillectomy Hx of appendectomy H/O colonoscopy No pertinent past surgical history Family History Father No problems noted. Mother No problems noted. Social History Alcohol intake: current Alcohol intake frequency: holidays/special occasions only Patient Tobacco Use Status: Never used Tobacco Review of Systems Const Denies chills and Denies fever(s) Card Reports no additional complaints and Denies syncope Resp Denies cough GI Denies abdominal pain and Denies heartburn Reports as per HPI and Denies change in libido Neuro Denies syncope Psych Denies change in libido Endo Denies change in libido Physical Exam Const General: cooperative, healthy appearing, comfortable and no acute distress Orientation/consciousness: patient oriented x3 HEENT Face and sinus: Yes normal facial exam Mouth: moist mucous membranes Neck Neck: Yes normal visual inspection, Yes full ROM and Yes trachea midline Chest Chest palpation & inspection: normal inspection of the chest Resp Effort & Inspection: normal respiratory effort, able to speak in complete sentences and no respiratory distress GI Inspection: Yes normal to inspection Back/Spine/Pelvis Cervical Spine: normal cervical lordosis Thoracic/Lumbar Spine: thoracic and lumbar spine normal to inspection Skin General skin exam: no rashes or lesions noted Neuro General: patient oriented x3, gait normal, tone normal and moves all extremities Extrem General: Yes normal to inspection and Yes capillary refill normal Assessment & Plan Assessment & Plan (1) Elevated PSA: Code(s): R97.20 - Elevated prostate specific antigen [PSA] Category: Medical (2) BPH (benign prostatic hyperplasia): Code(s): N40.0 - Benign prostatic hyperplasia without lower urinary tract symptoms Category: Medical Plan Twelve month follow-up tele PSA Orders: Orders Prostate Specific Antigen 12 Months R97.20 - Elevated prostate specific antigen [PSA] Patient Instructions: This note is constructed using voice recognition software. While every effort has been made to ensure accuracy broadband installer errors may have been included. Imaging studies, laboratory and physical exam results were discussed and reviewed in detail. No major barriers to patient understanding were identified. An opportunity to ask questions regarding the treatment plan was provided. All questions were answered. The patient expressed understanding and agreement with the above treatment plan. The patient is aware they should contact our office by phone for worsening of their current condition or the appearance of new urologic symptoms. Compliance is encouraged with any medications and followup testing that is ordered. It is a privilege to participate in the urologic care of your patient. If you have any questions or concerns regarding treatment for the above conditions, or other urologic issues, please do not hesitate to contact me. The office telep aniket contact is [phone]. Sincerely, Dr Sandro Callahan MD, [facility] - Urology Compassionate Specialist Care for the Genitourinary System Coding Level of Care Code Est Pt Level 4 (19200) Complex EM visit Add On G2211 Diagnoses Elevated PSA R97.20 BPH (benign prostatic hyperplasia) N40.0
--- OUTSIDE RECORDS SUMMARY | 2025-07-03 09:11 | XMS_ITS | Patient Health Record ---
Author Organization [facility] Address [address] [place] [address] Care Team Providers Care Resident Care Supervisor Name Role Phone Con Collier Primary Care Provider Inder Gray [phone] Allergies Allergen (clinical drug ingredient) Drug/Non Drug Allergy documented on EMR Reaction Allergy Type Onset Date Status Iodine Unknown Drug Allergy Active bee stings (uncoded) Unknown Allergy Active Results Component Value Reference Range Notes Pathology (Not yet reviewed by provider) Interpretation: Performing Lab:[facility], [address] [place] [id number] Notes/Report: Reason For Referral No Information Medications Medication [...] Status Risk Notes Problem Colon cancer screening (Z12.11) Active confirmed Problem Pre-procedure evaluation check (399153782) Encounter for other preprocedural examination (Z01.818) Active confirmed Vital Signs Blood pressure diastolic 00 mm Hg 11/21/2024 Height 70 in 11/21/2024 Blood pressure systolic 00 mm Hg 11/21/2024 Weight 204 lbs 11/21/2024 BMI 29.27 kg/m2 11/21/2024 Encounters Encounter Location Date Provider Diagnosis [facility] [address] [place] [id number] 03/07/2025 Inder Cantrell Colon cancer screeni ng Z12.11 ; Colon polyps K63.5 ; Diverticulosis of large intestine without perforation or abscess without bleeding K57.30 and Other hemorrhoids K64.8 [facility] [address] [place] [address] 11/21/2024 Inder Cantrell Colon cancer screeni ng Z12.11 and Encounter for other preprocedural examination Z01.818 Assessments Encounter Date Diagnosis (ICD Code) Assessment Notes Treatment Notes Treatment Clinical Notes Section Notes 03/07/2025 Colon cancer screening (ICD-10 - Z12.11) 03/07/2025 Colon polyps (ICD-10 - K63.5) 11/21/2024 Colon cancer screening (ICD-10 - Z12.11) [...] to keep you advised of his progress. 03/07/2025 Diverticulosis of large intestine without perforation or abscess without bleeding (ICD-10 - K57.30) 03/07/2025 Other hemorrhoids (ICD-10 - K64.8) Plan Of Treatment Pending Test Test Name Order Date Pathology 03/07/2025 Future Test Test Name Order Date COLONOSCOPY 09/12/2014 COLONOSCOPY 11/21/2024 Insurance Providers Payer Name Payer Address Payer Phone Subscriber Number Group Number Insured Name Patient Relationship to Insured Coverage Start Date Coverage End Date [employer] [address] [address] [place] [address] [phone] [id number] CAROLE CORA Self - patient is the insured Medical (General) History Medical History History ICD Code Denies OR,DM,CVA,Lung disease,renal dise ase Hyperlipidemia BPH Negative screening colonoscopy in [facility] of 2013 Surgical History Surgery Date(Month/Year) Appendectomy Tonsillectomy Laser prostate surgery
== END 2025-07-03 09:23 | disposition home or self-care (01) ==
LOC: HO.HUSH 08:32
PROVIDERS: PCP Internal Medicine; Visit Provider Urology
DX: N40.0 Benign prostatic hyperplasia without lower urinary tract symptoms (principal); R97.20 Elevated prostate specific antigen [PSA]; R35.1 Nocturia; R39.12 Poor urinary stream; N32.0 Bladder-neck obstruction
CPT/HCPCS: 99214; G2211

== ENCOUNTER → 2025-07-03 08:32 | Outpatient (BNVA) | payer OTHER, SELFPAY | PROVIDERS: PCP Internal Medicine; Visit Provider Urology | DX: N40.0 Benign prostatic hyperplasia without lower urinary tract symptoms (principal) | CPT/HCPCS: 51798; 81003 ==